=== PATIENT | male | born 1970 | race African-American/Black ===

== ENCOUNTER 2017-11-20 21:34 | Emergency (ER) | payer OTHER ==
[2017-11-20 21:50] VITALS: BP 154/92
[2017-11-20] MEDS ORDERED: Lidocaine 2% PF * 5 ML VIAL INJ ONE (22:01)
[2017-11-20] MEDS ORDERED: Tetan/Diph/Pertus SYR(Tdap)* 0.5 ML SYR(BOOSTRIX) use SYR IM ONE (22:01)
[2017-11-20] MEDS ORDERED: Lidocaine 2% PF * 5 ML VIAL ONE (22:03)
--- NOTE | 2017-11-20 22:37 | UC ---
Laceration HPI - HPI Summary HPI Summary: 47 up male injured his left index finger tonight at work Lacerated it with a knife tD not upto date he is right handed - History Of Current Complaint Chief Complaint: UCLaceration Stated Complaint: FINGER INJURY WC Time Seen by Provider: 11/20/17 21:37 Hx Obtained From: Patient Laceration Location: Finger Mechanism Of Injury: Sharp Trauma Onset/Duration: Sudden Onset Severity: Moderate Pain Intensity: 7 Pain Scale Used: 0-10 Numeric Aggravating Factors: Nothing Hands: 1 - lac - Allergies/Home Medications Allergies/Adverse Reactions: Allergies Allergy/AdvReac Type Severity Reaction Status Date / Time No Known Allergies Allergy Verified 11/20/17 21:50 Home Medications: Home Medications NK [No Home Medications Reported] 11/20/17 [History Confirmed 11/20/17] PMH/Surg Hx/FS Hx/Imm Hx Previously Healthy: Yes - Surgical History Surgical History: None - Family History Known Family History: Positive: Hypertension - Social History Alcohol Use: Occasionally Substance Use Type: None Smoking Status (MU): Current Every Day Smoker Type: Cigarettes Amount Used/How Often: 1 PACK PER WEEK - Immunization History Most Recent Tetanus Shot: >5 YEARS Review of Systems Constitutional: Negative Skin: Negative Eyes: Negative ENT: Negative Respiratory: Negative Cardiovascular: Negative Gastrointestinal: Negative Genitourinary: Negative Motor: Negative Neurovascular: Negative Musculoskeletal: Negative Neurological: Negative Psychological: Negative Is Patient Immunocompromised?: No All Other Systems Reviewed And Are Negative: Yes Physical Exam Triage Information Reviewed: Yes Appearance: Well-Appearing, No Pain Distress, Well-Nourished Vital Signs: Initial Vital Signs Temp 98.5 F 11/20/17 21:46 Pulse 64 11/20/17 21:46 Resp 16 11/20/17 21:46 BP 154/92 11/20/17 21:46 Pulse Ox 96 11/20/17 21:46 Vital Signs Reviewed: Yes Eyes: Positive: Conjunctiva Clear ENT: Negative: Nasal congestion, Nasal drainage, Trismus, Muffled voice, Hoarse voice Neck: Positive: Supple Respiratory: Positive: Lungs clear, Normal breath sounds, No respiratory distress, No accessory muscle use Cardiovascular: Positive: RRR, No Murmur Musculoskeletal: Positive: ROM Intact, No Edema Neurological: Positive: Alert, Other: - DECREASED SENSATION DISTAL TO LAC Psychological Exam: Normal Skin Exam: Other - Lac Laceration Repair - Laceration Repair 1 Description: Linear Laceration Size After Repair: Length (cm) - 1.2, Width (mm) - 3, Depth (mm) - 2- 3 Type Injection: Digital Anesthesia Used: 2.0% Lido Cleansing Completed Via Routine Prep: Yes Irrigation With Pressure Irrigation Device: Yes Closure Method: Single Layer Suture Of: Skin Suture Type: Nylon - 6 5-0 NYLON SUTURES Laceration Course/Dx - Differential Dx - Laceration/Wound Provider Diagnoses: LEFT INDEX FINGER LACERATION- REPAIRED. POSSIBLE DIGITAL NERVE INJURY. ELEVATED BP WITHOUT DIAGNOSIS OF HTN Discharge - Sign-Out/Discharge Documenting (check all that apply): Patient Departure All imaging exams completed and their final reports reviewed: No Studies - Discharge Plan Condition: Stable Disposition: HOME Patient Education Materials: Laceration (ED) Referrals: No Primary Care Phys,NOPCP [Primary Care Provider] - [facility] [place] [facility] [Outside] - As Soon As Possible Additional Instructions: gently clean twice daily with soap and water antibiotic oint (thin film) bandaid at work elevate tylenol or advil RECHECK HERE IN 3-4 DAYS SO WE CAN RECHECK YOUR SENSATION. IT WAS DECREASED AND YOU MAY HAVE INJURED A NERVE SUTURES OUT IN 7 DAYS YOUR BP WAS A LITTLE HIGH YOU NEED TO FIND A LOCAL MD AND FOLLOW IT UP IN 1-2 MOS - Billing Disposition and Condition Condition: STABLE Disposition: Home
== END 2017-11-20 22:45 | disposition home or self-care (01) ==
LOC: UCEAST 21:34
DX: S61.211A Laceration without foreign body of left index finger without damage to nail, initial encounter (principal); W26.0XXA Contact with knife, initial encounter; Y92.9 Unspecified place or not applicable; F17.210 Nicotine dependence, cigarettes, uncomplicated
CPT/HCPCS: 12001; 90715; 99201; G0463

== ENCOUNTER 2017-11-30 17:02 | Emergency (ER) | payer OTHER ==
[2017-11-30 17:14] VITALS: BP 151/95
--- NOTE | 2017-11-30 17:18 | UC ---
HPI Wound/Suture Re-check - HPI Summary HPI Summary: 47 y/o male presents to the urgent care for suture removal of his left index s/ p laceration w/ a knife 10 days ago[address] here at the urgent care. Pt states wound healing well. Pt denies pain, fever, signs of infection, SOB, chest pain, abdominal pain, N/V/D. - History Of Current Complaint Chief Complaint: UCLaceration Stated Complaint: SUTURE REMOVAL Time Seen by Provider: 11/30/17 17:17 Hx Obtained From: Patient Onset/Duration: Sudden Onset, Lasting Days - 10 days ago, Resolved Severity: Mild Pain Intensity: 1 Pain Scale Used: 0-10 Numeric - Allergies/Home Medications Allergies/Adverse Reactions: Allergies Allergy/AdvReac Type Severity Reaction Status Date / Time No Known Allergies Allergy Verified 11/30/17 17:13 PMH/Surg Hx/FS Hx/Imm Hx Previously Healthy: Yes - PT denies PMHX - Surgical History Surgical History: None - Family History Known Family History: Positive: Hypertension Negative: Cardiac Disease, Diabetes - Social History Occupation: Employed Full-time Lives: With Family Alcohol Use: Occasionally Substance Use Type: None Smoking Status (MU): Current Some Day Smoker Type: Cigarettes Amount Used/How Often: 1 PACK PER WEEK - Immunization History Most Recent Tetanus Shot: 11/20/2017 Review of Systems Constitutional: Negative Skin: Other - left index w/ [address], ready for removal Eyes: Negative ENT: Negative Respiratory: Negative Cardiovascular: Negative Gastrointestinal: Negative Genitourinary: Negative Motor: Negative Neurovascular: Negative Musculoskeletal: Negative Neurological: Negative Psychological: Negative Is Patient Immunocompromised?: No All Other Systems Reviewed And Are Negative: Yes Physical Exam - Summary Physical Exam Summary: Vital Signs Reviewed: Yes General: well developed, well nourished male sitting in the examining table w/o any apparent distress Eye Exam: Normal Eyes: Positive: Conjunctiva Clear - PERRLA, EOMI, fundi grossly normal ENT: Positive: Normal ENT inspection, Hearing grossly normal, Pharynx normal, TMs normal Neck: Positive: Supple, Nontender, No Lymphadenopathy Respiratory: Positive: Chest non-tender, Lungs clear, Normal breath sounds, No respiratory distress Cardiovascular: Positive: RRR, No Murmur, Pulses Normal, Brisk Capillary Refill Abdomen Description: Positive: Nontender, No Organomegaly, Soft. Negative: CVA Tenderness (R), CVA Tenderness (L) Bowel Sounds: Positive: Present Musculoskeletal: Positive: Strength Intact, ROM Intact, No Edema Neurological: Positive: Alert, Muscle Tone Normal Psychological Exam: Normal Skin: Positive: Left distal 2nd phalanx medial aspect with [address] wound healing well, no signs of infection observed, no drainage, swelling or erythema observe. non tender to palpation. FrOM of left index, sensation intact , capillary refill brisk, and pulses WNL. Triage Information Reviewed: Yes Vital Signs: Initial Vital Signs Temp 98.2 F 11/30/17 17:09 Pulse 64 11/30/17 17:09 Resp 18 11/30/17 17:09 BP 151/95 11/30/17 17:09 Pulse Ox 99 11/30/17 17:09 Course/Dx - Course Course Of Treatment: 47 y/o male presents to the urgent care for suture removal of his left index s/p laceration w/ a knife 10 days ago. [address] here at the urgent care. Pt states wound healing well. Pt denies pain, fever, signs of infection, SOB, chest pain, abdominal pain, N/V/D. Hx obtained. Pt w/ medial aspect of left 2nd distal phalnx w/ 6 sutures in placed, no signs of infection on examiantion. 6 sutures removed w/o any difficulty. wound cleaned with sterile water and bacitracin applied over and cover with sterile gauze. Pt Rx Bacitracin oint. Pt advised if redness, pain or fever develops to return to the urgent care or f/u with PCP for further treatment. Pt's BP elevated today, advised to decrease salt in diet and monitor BP, and f/u with PCP. Pt understood and agreed with plan of care - Differential Dx - Laceration/Wound Differential Diagnoses: Cellulitis, Dehiscence, Healing Wound, Suture Removal Provider Diagnoses: 1- left index sutures removal s/p laceration repair. 2- Elevated BP w/o Hx of HTN Discharge - Sign-Out/Discharge Documenting (check all that apply): Patient Departure - D/C home All imaging exams completed and their final reports reviewed: No Studies - Discharge Plan Condition: Stable Disposition: HOME Prescriptions: Bacitracin OINTMENT* 1 applic TOPICAL BID #1 tube Patient Education Materials: Acute Wound Care (ED), Low-Sodium Diet (ED) Referrals: [facility] [place]] - If Needed Additional Instructions: 1-Please apply topical antibiotic over the wound. Keep wound clean and dry 2-Your BP is elevated today. please decrease salt in your diet, monitor BP and if it continues to be elevated please f/u with your PCP for further management. 3- If you develop fever or redness around your finger despite the antibiotic please go to the ER immediately or return to the Urgent care. - Billing Disposition and Condition Condition: STABLE Disposition: Home
== END 2017-11-30 17:35 | disposition home or self-care (01) ==
LOC: UCEAST 17:02
DX: S61.211D Laceration without foreign body of left index finger without damage to nail, subsequent encounter (principal); W26.0XXD Contact with knife, subsequent encounter; R03.0 Elevated blood-pressure reading, without diagnosis of hypertension; Z72.0 Tobacco use

== ENCOUNTER → 2018-01-11 01:09 | Emergency (ER) | payer OTHER ==
[~2018-01-11 01:09] MED LIST: Hydrochlorothiazide TAB* 25 MG ONE; Hydrochlorothiazide TAB* 25 MG PO ONE; Hydrochlorothiazide TAB* 50 MG PO ONE; Ketorolac INJ* 30 MG/ML 1 ML VIAL IM ONE; traMADol TAB* 50 MG PO ONE
--- NOTE | 2018-01-11 01:51 | ED ---
Throat Pain/Nasal Congestion - HPI Summary HPI Summary: 47-year-old male presents with dental pain for the past week. He states that the left side of his jaw has been swelling. He states he is currently on amoxicillin and naproxen for pain. he saw a dentist on and recommended that his upper teeth removed. He states the pain is causing him shortness of breath. No chest pain. No difficulty swallowing. No pain or swelling around his eyes. No medical conditions. - History of Current Complaint Chief Complaint: EDDentalPain Time Seen by Provider: 01/11/18 01:21 - Allergies/Home Medications Allergies/Adverse Reactions: Allergies Allergy/AdvReac Type Severity Reaction Status Date / Time No Known Allergies Allergy Verified 01/11/18 01:15 Home Medications: Home Medications Amoxicillin 875 mg PO DAILY 01/11/18 [History Confirmed 01/11/18] Naproxen [Naproxen 500 mg tab] 500 mg PO BID 01/11/18 [History Confirmed ] PMH/Surg Hx/FS Hx/Imm Hx Endocrine/Hematology History: Denies: Hx Diabetes Cardiovascular History: Denies: Hx Hypertension Infectious Disease History: No Infectious Disease History: Denies: Traveled Outside the [place] in Last 30 Days - Family History Known Family History: Positive: Hypertension Negative: Cardiac Disease, Diabetes - Social History Alcohol Use: Occasionally Substance Use Type: Reports: Marijuana Smoking Status (MU): Former Smoker Type: Cigarettes Amount Used/How Often: 1 PACK PER WEEK Review of Systems Negative: Fever Positive: Dental Pain Negative: Chest Pain Negative: Shortness Of Breath All Other Systems Reviewed And Are Negative: Yes Physical Exam Triage Information Reviewed: Yes Vital Signs On Initial Exam: Initial Vitals Temp Pulse Resp BP Pulse Ox 97.9 F 60 16 178/86 98 01/11/18 01:09 01/11/18 01:09 01/11/18 01:09 01/11/18 01:09 01/11/18 01:09 Vital Signs Reviewed: Yes Appearance: Positive: Well-Appearing Skin: Positive: Warm, Dry Head/Face: Positive: Normal Head/Face Inspection Eyes: Positive: Normal, EOMI, ODILON, Conjunctiva Clear ENT: Positive: Normal ENT inspection, Pharynx normal, TMs normal Dental: Positive: Other - tenderness left jaw with edema present, no area of flautance Respiratory/Lung Sounds: Positive: Clear to Auscultation, Breath Sounds Present Cardiovascular: Positive: Normal, RRR Musculoskeletal: Positive: Normal Neurological: Positive: Normal Psychiatric: Positive: Normal Diagnostics - Vital Signs Vital Signs Temp Pulse Resp BP Pulse Ox 01/11/18 01:09 97.9 F 60 16 178/86 98 - Laboratory Lab Statement: Any lab studies that have been ordered have been reviewed, and results considered in the medical decision making process. EENT Course/Dx - Course Course Of Treatment: 47-year-old male presents with dental pain for the past week. He states that the left side of his jaw has been swelling. He states he is currently on amoxicillin and naproxen for pain. he saw a dentist on and recommended that his upper teeth removed. He states the pain is causing him shortness of breath. No chest pain. No difficulty swallowing. No pain or swelling around his eyes. No medical conditions. On exam tenderness over left lower jaw with some edema noted. No area of fluctuance noted. Will place on Clinda instead of amoxicillin. Gave Tylenol for pain. gave dose of hydrochlorothiazide as blood pressure is elevated at this time. bp likely due to pain. Told to establish care with primary to follow up about blood pressure. Patient understands agrees with plan. - Differential Diagnoses Differential Diagnoses: Dental Abscess, Dental Caries, Fracture - Diagnoses Provider Diagnoses: Dental infection, Elevated blood pressure reading Discharge - Sign-Out/Discharge Documenting (check all that apply): Patient Departure - Discharge Plan Condition: Good Disposition: HOME Prescriptions: Clindamycin Cap(NF) [Clindamycin Cap 300 mg Cap(NF)] 300 mg PO TID #21 cap traMADol TAB* [Ultram*] 50 mg PO Q8H PRN #9 tab MDD 3 PRN Reason: Pain Patient Education Materials: Dental Abscess (ED) Referrals: [facility] [place] [facility] [Outside] Additional Instructions: Take clindamycin three times a day for 7 days, stop amoxicillin Take ibuprofen every 6 hours for pain as needed, use tramadol every 8 hours as needed for break through pain Avoid hard, crunchy food until seen by dentist Return to ED if develop fever, shortness of breath, pain with eye movement or swelling around eye Establish care with primary care physician and dentist as soon as possible - Billing Disposition and Condition Condition: GOOD Disposition: Home
[2018-01-11 03:57] VITALS: BP 187/101
== END | disposition home or self-care (01) ==
LOC: ED 01:09
DX: K04.7 Periapical abscess without sinus (principal); R03.0 Elevated blood-pressure reading, without diagnosis of hypertension; Z87.891 Personal history of nicotine dependence
CPT/HCPCS: 96372; 99282; A9270-GY; J1885